=== PATIENT | male | born 1980 | race Caucasian/White ===

== ENCOUNTER 2020-12-17 13:15 | Emergency (ER) | payer SELFPAY ==
[~2020-12-17] VITALS: Ht 175.3 cm; Wt 72.6 kg
[2020-12-17 13:29] VITALS: BP 148/105
[2020-12-17] MEDS ORDERED: KETOROLAC 30 MG/ML VIAL IM ONE (13:30)
[2020-12-17] MEDS ORDERED: LIDOCAINE MPF 1% 10 MG/ML VIAL INJ ONE (13:30)
--- NOTE | 2020-12-17 13:36 | NUR ---
PT BACK FROM RAD AND TAKEN TO ER BED 9
--- NOTE | 2020-12-17 13:40 | NUR ---
40 Y/O MALE C/O RIGHT HAND ABSCESS AND R 4TH DIGIT REDNESS/SWELLING X1WEEK. PT STATES HE HIT HIS HAND AND IT CUT OPEN ON UNKNOWN OBJECT. PT STATES HE NOTICED SWELLING X4 DAYS AGO. PT REPORTS 10/10 PAIN. +SWELLING, REDNESS AND YELLOW EXCUDATE ON HAND. 4TH FINGER IS RED ABD SWOLLEN. CAP REFILL <3 SECONDS, RADIAL PULSES +2. DENIES NUMBNESS/TINGLING. DENIES FEVER/CHILLS. PT A/O X4 WITH EVEN AND UNLABORED RESPIRATIONS. PMH:DENIES NKA
--- NOTE | 2020-12-17 13:42 | NUR ---
RICCO MIRANDA AT BEDSIDE FOR PROCEDURE
[2020-12-17] MEDS ORDERED: BACI1PAC6 TP (13:46)
[2020-12-17] MEDS ORDERED: CEPH-588 PO (13:46)
[2020-12-17] MEDS ORDERED: NAPR-54 PO (13:46)
[2020-12-17] MEDS ORDERED: BACITRACIN OINT 500 UNITS/GM PKT TP ONE ×2 (13:47→13:50)
--- NOTE | 2020-12-17 13:55 | NUR ---
PT FINGER AND HAND WAS DRESSED WITH BACITRACIN AND WAS WRAPED.
--- NOTE | 2020-12-17 14:08 | NUR ---
Patient discharged with v/s stable. Written and verbal after care instructions OF SKIN ABSCESS given and explained. Patient alert, oriented and verbalized understanding of instructions. Ambulatory with steady gait. All questions addressed prior to discharge. ID band removed. Patient advised to follow up with PMD. Rx of BACITRACIN ZINC, CEPHALEXIN AND NAPROXEN given. Patient educated on indication of medication including possible reaction and side effects. Opportunity to ask questions provided and answered.
== END 2020-12-17 14:08 | disposition home or self-care (01) ==
LOC: MED 13:15
DX: L03.011 Cellulitis of right finger (principal); F17.210 Nicotine dependence, cigarettes, uncomplicated
CPT/HCPCS: 10060; 73130; 96372; 99283; J1885; J2001

== ENCOUNTER 2020-12-24 12:05 | Emergency (ER) | payer SELFPAY ==
[~2020-12-24] VITALS: Ht 175.3 cm; Wt 72.6 kg
[~2020-12-24 12:05] MED LIST: BACI1PAC6 TP; CEPH-588 PO; NAPR-54 PO
[2020-12-24 12:26] VITALS: BP 150/89
--- NOTE | 2020-12-24 12:30 | NUR ---
tent 1.
[2020-12-24] MEDS ORDERED: PENI500T20 PO (12:47)
[2020-12-24] MEDS ORDERED: PRED20TA5 PO (12:47)
[2020-12-24] MEDS ORDERED: NAPR-54 PO (12:47)
[2020-12-24 13:30] VITALS: BP 150/89
--- NOTE | 2020-12-24 13:30 | NUR ---
NO NURSING CARE GIVEN Patient discharged with v/s stable. Written and verbal after care instructions given and explained. Patient alert, oriented and verbalized understanding of instructions. Ambulatory with steady gait. All questions addressed prior to discharge. ID band removed. Patient advised to follow up with PMD. Rx of NAPROSYN given. Patient educated on indication of medication including possible reaction and side effects. Opportunity to ask questions provided and answered.
== END 2020-12-24 13:30 | disposition home or self-care (01) ==
LOC: MED 12:05
DX: J02.0 Streptococcal pharyngitis (principal); Z79.899 Other long term (current) drug therapy
CPT/HCPCS: 99282